=== PATIENT | female | born 1950 | race Hispanic/Latino ===

== ENCOUNTER 2017-05-02 15:34 | Outpatient (CLI) | payer OTHER | END 2017-05-02 15:35 | disposition home or self-care (01) | LOC: BICMAMMO 15:34 | PROVIDERS: ATTEND Obstetrics & Gynecology | DX: Z12.31 Encounter for screening mammogram for malignant neoplasm of breast (principal); M81.0 Age-related osteoporosis without current pathological fracture; M85.80 Other specified disorders of bone density and structure, unspecified site | CPT/HCPCS: 77063; 77067; 77080 ==

== ENCOUNTER 2018-09-11 08:47 | Outpatient (CLI) | payer MEDICARE ==
--- NOTE | 2018-09-11 09:32 | MMO ---
Bilateral MAMMO Bilat Screen [facility]. CLINICAL HISTORY: Patient is 67 years old and is seen for screening. The patient has no family history of breast cancer. The patient has no personal history of cancer. VIEWS: The views performed were: bilateral craniocaudal with tomosynthesis and bilateral mediolateral oblique with tomosynthesis. FILMS COMPARED: The present examination has been compared to prior imaging studies performed at [facility] on 01/30/2015 and 05/02/2017, and at [facility] [place] on [place]/11/2012 and 07/22/2012. MAMMOGRAM FINDINGS: There are scattered fibroglandular densities. There are no suspicious masses, suspicious calcifications, or new areas of architectural distortion. IMPRESSION: THERE IS NO MAMMOGRAPHIC EVIDENCE OF MALIGNANCY. A ROUTINE FOLLOW-UP MAMMOGRAM IN 1 YEAR IS RECOMMENDED. THE RESULTS OF THIS EXAM WERE SENT TO THE PATIENT. ACR BI-RADS Category 1 - Negative MAMMOGRAPHY NOTE: 1. A negative mammogram report should not delay a biopsy if a dominant of clinically suspicious mass is present. 2. Approximately 10% to 15% of breast cancers are not detected by mammography. 3. Adenosis and dense breasts may obscure an underlying neoplasm.
== END 2018-09-11 08:48 | disposition home or self-care (01) ==
LOC: BICMAMMO 08:47
PROVIDERS: ATTEND Family Medicine
DX: Z12.31 Encounter for screening mammogram for malignant neoplasm of breast (principal)
CPT/HCPCS: 77063; 77067

== ENCOUNTER 2018-11-22 09:59 | Outpatient (CLI) | payer MEDICARE ==
--- NOTE | 2018-11-22 10:35 | RAD ---
RIGHT HIP TWO VIEWS: History: Hip pain. FINDINGS: There is no significant joint space narrowing. No signs of any fracture or other findings. IMPRESSION: No acute findings. POS: OFF
--- NOTE | 2018-11-22 10:37 | RAD ---
LUMBAR SPINE SERIES TWO VIEWS: History: Low back pain. Pain going down right leg. FINDINGS: Vertebral bodies are normal in height. There are degenerative osteophytes present. There is mild disc narrowing at L2-3. Some minimal disc narrowing at L3-4 and L4-5 with a minimal grade I spondylolisth esis of L4 on L5. Moderately severe degenerative disc narrowing is seen at L5-S1. There are marked de generative facet changes of the lower lumbar spine. IMPRESSION: Moderately severe arthritic changes of the spine. POS: OFF
== END 2018-11-22 10:00 | disposition home or self-care (01) ==
LOC: BICRAD 09:59
PROVIDERS: ATTEND Physician Assistant
DX: M25.551 Pain in right hip (principal); M54.5 Low back pain
CPT/HCPCS: 72100; 80053; 80061; 81001; 82306; 83036; 85025; 86803

== ENCOUNTER 2020-03-19 12:39 | Outpatient (CLI) | payer MEDICARE ==
--- NOTE | 2020-03-19 14:05 | BD ---
Exam: DEXA Bone Density 03/19/20 COMPARISON: None. HISTORY: 69-year-old postmenopausal female for screening. Lumbar Spine: BMD (g/cm2) T-SCORE L1 0.967 -0.2 L2 0.996 -0.3 L3 1.042 -0.4 L4 1.066 0.0 L1-L4 1.024 -0.2 Left Femoral Neck: 0.660 -1.7 Total Proximal Left Femur: 0.908 -0.3 Impression: Osteopenia. This patient has a ten year WHO fracture risk of a major osteoporotic fracture of 15% and hip fractur e of 3.3%. POS: EAA
--- NOTE | 2020-03-19 14:47 | MMO ---
Bilateral MAMMO Bilat Screen [facility]. CLINICAL HISTORY: Patient is 69 years old and is seen for screening. The patient has no family history of breast cancer. The patient has no personal history of cancer. VIEWS: The views performed were: bilateral craniocaudal with tomosynthesis and bilateral mediolateral oblique with tomosynthesis. FILMS COMPARED: The present examination has been compared to prior imaging studies performed at [facility] on 01/30/2015, 05/02/2017 and 09/11/2018, and at [facility] [place] on 07/22/2012. This study has been interpreted with the assistance of computer-aided detection. MAMMOGRAM FINDINGS: There are scattered fibroglandular densities. There are no suspicious masses, suspicious calcifications, or new areas of architectural distortion. IMPRESSION: THERE IS NO MAMMOGRAPHIC EVIDENCE OF MALIGNANCY. A ROUTINE FOLLOW-UP MAMMOGRAM IN 1 YEAR IS RECOMMENDED. THE RESULTS OF THIS EXAM WERE SENT TO THE PATIENT. ACR BI-RADS Category 1 - Negative MAMMOGRAPHY NOTE: 1. A negative mammogram report should not delay a biopsy if a dominant of clinically suspicious mass is present. 2. Approximately 10% to 15% of breast cancers are not detected by mammography. 3. Adenosis and dense breasts may obscure an underlying neoplasm. Reported by: ELI URIBE MD Electonically Signed: [id number]
== END 2020-03-19 12:40 | disposition home or self-care (01) ==
LOC: BICMAMMO 12:39
PROVIDERS: ATTEND Physician Assistant
DX: Z12.31 Encounter for screening mammogram for malignant neoplasm of breast (principal); Z13.820 Encounter for screening for osteoporosis; M85.852 Other specified disorders of bone density and structure, left thigh; Z78.0 Asymptomatic menopausal state
CPT/HCPCS: 77063; 77067; 77080